=== PATIENT | female | born 1970 | race Caucasian/White ===

== ENCOUNTER 2018-08-20 16:55 | Emergency (ER) | payer MEDICAID ==
[~2018-08-20] VITALS: Ht 165.1 cm; Wt 70.0 kg
[~2018-08-20 16:55] MED LIST: PERM60CR19 TP
[2018-08-20 17:27] VITALS: BP 114/70
--- NOTE | 2018-08-20 18:08 | NUR ---
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
--- NOTE | 2018-08-20 18:38 | NUR ---
RINGS WERE REMOVED WITH RING CUTTER, PT NABILA WELL
== END 2018-08-20 18:39 | disposition home or self-care (01) ==
LOC: ER 16:55
DX: M79.644 Pain in right finger(s) (principal); M79.89 Other specified soft tissue disorders; F12.10 Cannabis abuse, uncomplicated
CPT/HCPCS: 73130; 99283

== ENCOUNTER 2025-06-21 21:06 | Inpatient (IN) | payer MEDICAID ==
[~2025-06-21] VITALS: Ht 165.1 cm; Wt 72.6 kg
[~2025-06-21 21:06] MED LIST changes: -PERM60CR19 TP; +PERM60CR27 TP
--- NOTE | 2025-06-21 21:26 | ELECTROCARDIOGRAPH REPORT ---
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 Thomas Iglesias Measurements Intervals [place] Rate: 74 P: 72 [place]: 148 QRS: 45 QRSD: 93 T: 86 QT: 407 QTc: 452 Interpretive Statements Sinus rhythm Anteroseptal infarct, age indeterminate Electronically Signed On 06-22-2025 18:50:[address] Thomas Iglesias Please click the below link to view image of tracing.
--- NOTE | 2025-06-21 21:58 | Physician Documentation ---
History of Present Illness ~ Chief Complaint: Shortness of Breath Stated Complaint: TRANSFER Time Seen by MD: 21:57 Primary Medical Doctor: NONE HPI Patient presents to the emergency room for evaluation of shortness of breaths sent from [facility]. Workup at sending facility that has consistent with COPD exacerbation with hypoxia. CT scan performed at sending facility showed that there was a pulmonic mass and they he had not feel comfortable admitting patient without MRI capabilities therefore transferred to our facility. Patient continues to endorse shortness of breath. Medication Reconciliation Allergies: Coded Allergies: No Known Allergies (Unverified , 06/21/25) Miscellaneous Medications Home Med List (No Home Medications), (Reported) Discontinued Medications Permethrin 5% Cream* (Elimite 5% Cream*), 1 APPLIC TP ONCE Discontinued Reason: patient no longer taking Past Medical History Past Medical History: Bronchitis Past Surgical History: no surgical history Alcohol Use: Occasionally Drug Use: marijuana Lives with: Family Lives In: Home Review of Systems ROS All review of systems negative except as per HPI Physical Exam Vital Signs: Temperature: 99.1, Source: Oral, Heart Rate: 80, Respiratory Rate: 22, BP: 114/69, Pulse Oximetry: 93, Weight: 72.600 Oxygen Flow Rate: 4.0 Physical Exam General: Patient is awake, alert, oriented x4 in no acute distress Head: Normocephalic and atraumatic. Eyes: Conjunctival normal. EOMI. PERRL. ENT: Mucous membranes moist. Neck: Supple, trachea is midline. Chest: Coarse breath sounds and diffuse rhonchi bilaterally. There is no accessory muscle use or retractions. Cardiac: RRR without murmurs, gallops, or rubs. Abd: Soft, nondistended, nontender, with normoactive bowel sounds. No guarding, rebound, or rigidity. Progress Results/Orders Results/Orders Orders - LON VIZCAINO MD Page Hospitalist (06/21/25 22:14) Fill Out Med Reconciliation (06/21/25 22:14) Completed Orders - LON VIZCAINO MD Electrocardiogram (06/21/25 21:20) Medications Received in ER Medications (Trade) Dose Ordered Sig/Vicki Route PRN Reason Start Time Stop Time Status Last Admin Dose Admin Sodium Chloride 1,000 ml @ 75 mls/hr [id number] IV 06/21/25 23:25 06/21/25 23:25 75 MLS/HR Vital Signs 06/21/25 21:16 Temp 99.1 Pulse 80 Resp 22 B/P (MAP) 114/69 Pulse Ox 93 O2 Flow Rate 4.0 Laboratory Tests Test 06/21/25 21:17 Prothrombin Time 10.0 INR International Normalized Ratio 1.0 Activated Partial Thromboplast Time 26 Coagulation Comments Phosphorus Level 2.7 Magnesium Level 2.2 Pro-B-Type Natriuretic Peptide 88 EKG/XRAY/CT/US/VASC/MRI EKG : Additional Comment EKG interpreted by myself shows time of 09/05/2023, rate 74, sinus rhythm, normal axis, no ST changes Medical Decision Making Additional information obtaine: other Findings Patient presented to the emergency room that has a transfer from [facility] with COPD exacerbation and I hypoxia and found to have a lung mass. They do not have MRI capabilities to further characterize the lung mass therefore transferred to our facility. Heart Score: 0 Differential Dx:Considerations: Include: anxiety, asthma, bronchitis, cardiogenic shock, CHF, COPD, dysrhythmia, hypertension, accelerated, hypertension, essential, hypertension, malignant, hyperventilation, hyponatremia , myocardial infarction, panic attack, pneumonia, pneumonitis, pneumothorax, PSVT, pulmonary embolism, respiratory distress, respiratory failure, sinusitis, upper resp. infection, other Departure Admitted to Inpatient Unit: yes, to hospitalist Impression: Primary Impression: COPD exacerbation Additional Impressions: Hypoxia Lung mass Condition: Guarded Referrals: NO PRIMARY CARE PROVIDER (PCP) Critical Care Note Total Time (mins): 30 Critical Care Note The very real possibility of a deterioration of this patient's condition required the highest level of my preparedness for sudden, emergent intervention. I provided critical care services, which included medication orders, frequent reevaluations of the patient's condition and response to treatment, ordering and reviewing test results, and discussing the case with various consultants. Excludes time spent performing separately billable procedures. The critical care time associated with the care of the patient was 30 minutes not counting procedures Signature Scribe Signature: No scribe Attestation: The note accurately reflects work and decisions made by me.Lon Vizcaino MD 06/21/25 22:13 LON VIZCAINO MD Jun 21, 2025 21:58
[2025-06-21] MEDS ORDERED: mag hydrox/Alum hydrox/simeth 30ml oral suspension PO PRN (23:25)
[2025-06-21] MEDS ORDERED: magnesium sulf-water 2g/50mL 50 ML IV PRN (23:25)
[2025-06-21] MEDS ORDERED: magnesium hydroxide 30ml (MOM) UD suspension PO PRN (23:25)
[2025-06-21] MEDS: normal saline 1000ml 1,000 ML IV SCH (23:25)
[2025-06-21] MEDS ORDERED: potassium Cl 20 mEq SR tablet PO PRN ×2 (23:25)
[2025-06-21] MEDS ORDERED: magnesium sulf-water 4G/100mL 100 ML IV PRN (23:25)
[2025-06-21] MEDS ORDERED: ondansetron/PF 4mg/2ml inj IV PRN (23:25)
[2025-06-21] MEDS ORDERED: potassium Cl 40MEQ/1/2NS 520ml 520 ML IV PRN (23:25)
[2025-06-21] MEDS ORDERED: magnesium Cl slow-release 64mg tablet PO PRN (23:25)
[2025-06-21] MEDS ORDERED: albuterol 2.5 MG/3 ML nebule NEB PRN (23:25)
--- NOTE | 2025-06-21 23:41 | HISTORY AND PHYSICAL-Residence ---
History & Physical Providers to CC Resident Creating Document: JAREN NARVAEZ, RES CC: AMANDEEP GRAHAM MD ~ History of Present Illness Primary Medical Doctor: NONE Reason for Admit\Complaint: COPD exacerbation History of Present Illness 54-year-old female patient with past medical history of COPD, active tobacco use disorder, active methamphetamine use is a transfer from [facility] chief complaints of COPD exacerbation with hypoxia and incidental CT finding of pulmonic mass, for further workup of the mass and MRI for further evaluation Patient stated that she was completely normal a week ago, she started developing shortness of breath associated with cough with white sputum. Patient also stated that her shortness of breath severely aggravated and she could not walk even couple of steps, during this time she also noticed she had chest pain she described the pain as burning kind of pain and was throughout her chest she felt like her lungs were on fire, also stated that she felt extreme fatigue due to repeated coughing spells. Patient also stated that she had two episodes of fever during the last one week but did not record any temperature. Admission course at [facility] Patient was supplemented with oxygen, received one dose of 125 mg Solu-Medrol and was initiated on ceftriaxone+azithromycin Patient's CT chest with contrast findings showed fat density mass adjacent to cardiac apex, further evaluation with MRI recommended Chest x-ray reported slight left basilar pneumonia Tested negative for COVID and flu Lives in a trailer with her friend, she does not have a primary care doctor. Allergies: Coded Allergies: No Known Allergies (Unverified , 06/21/25) Home Medications Home Medications Active Elimite 5% Cream* (Permethrin) 60 Gm Cream.gm. 1 Applic TP ONCE Past Medical History Past Medical History Active tobacco use Polysubstance use COPD Past Surgical History Surgical History Comment Patient recently had sutures of her left index finger post a small accident when she was trying to open a super glue Past Social History Social History Comment Patient continues to smoke half pack of cigarettes, she has smoked for the last 40 years Patient stated that she smokes and snorts methamphetamine Patient says she occasionally drinks alcohol Smoking: Cigarettes Alcohol Use: Occasionally Drug Use: Marijuana Lives with: Family Lives In: Home ROS ROS Constitutional: No fever, dizziness,no weakness, no decrease in appetite HEENT: Normal vision. No sore throat, epistaxis, tinnitus Cardiovascular: No chest pain/discomfort, palpitations, syncope. no pedal edema Respiratory: Shortness of breath and cough noted,no hemoptysis Gastrointestinal: No abdominal pain, nausea, vomiting. No diarrhea, melena. Genitourinary: No frquency, urgency, incontinence, nocturia. No dysuria, hematuria Musculoskeletal: Normal, no pains Endocrine: No fatigue, polydipsia, polyuria. No heat or cold intolerance Neurologic: No headache, vertigo. No weakness, numbness or tingling of extremities Psychiatric: No hallucinations/delusions, no anhedonia, no suicidal ideation Hematologic: No bruises Exam Vitals: Vital Signs Date Time Temp Pulse Resp B/P (MAP) Pulse Ox O2 Delivery O2 Flow Rate FiO2 06/21/25 21:16 99.1 80 22 114/69 93 4.0 General: General: Awake, oriented to person, place and time HEENT: Conjunctive are pink, sclerae clear, no icterus, pupil is equal in both sides, reactive to light, no ear discharge, no pharyngeal erythema or an edema. Pursed lips Neck: Supple, no JVD, no lymphadenopathy and thyromegaly. Chest: Decreased breath sounds, expiratory wheezes heard bilaterally Cardiovascular: S1-S2 regular sinus rhythm and, regular rate, no gallops, no rubs, no murmurs Abdomen: No visible peristalsis, Bowel sounds present on auscultation, soft, no tenderness, no guarding, no rigidity Extremities: No obvious deformities, no pitting edema bilaterally, capillary refill intact, peripheral pulsations are intact on both sides. Left index finger sutures noted Neurologic: Mental status: alert and conscious, oriented to place, person and time, preserved memory, normal speech. Cranial nerves I-XII: Normal. Motor system: Preserved power, coordination, no evidenced involuntary movements, strength 5/5 in four extremities. Sensory system: Preserved temperature, pain and vibration sensation. 2+ deep tendon reflexes in biceps, triceps, quadriceps. Negative Babinski. Cerebellar: No nystagmus, dysdiadochokinesia, normal [id number] testing. Musculoskeletal: No joint swelling, deformities, inflammations, and no scoliosis and back tenderness Skin: Warm and dry. Dry oral mucosa. Diagnostic Data Last Recorded Lab Results: 06/22/25 0306 06/22/25 0306 Counseling Services Smoking & Tobacco Cessation: 3-10 Minutes (Discussing smoking cessation with the patient including the risk continued smoking with the patient including: lung cancer, stroke, heart attack, poor wound healing, increase in facial drinking, risk of MRSA skin infections.) Advance Care Planning Advanced Care plannin - 30 Minutes (Spent 17 minutes discussing advanced care planning/ resuscitative measures patient decided she wanted to be a full code) Additional Plan Assessment: A 54-year-old female patient with past medical history of COPD, active tobacco use disorder, active methamphetamine use is a transfer from [facility] chief complaints of COPD exacerbation with hypoxia and incidental CT finding of pulmonic mass, for further workup of the mass and MRI for further evaluation Acute hypoxemic respiratory failure Secondary to acute exacerbation of COPD On examination, patient has expiratory wheezing and decreased breath sounds heard; patient also noted to have cough with sputum Patient is currently requiring 4 L of oxygen and saturating well [facility] course: Received one dose of 125 mg Solu-Medrol and was initiated on ceftriaxone+azithromycin Patient's CT chest with contrast findings showed fat density mass adjacent to cardiac apex, further evaluation with MRI recommended Chest x-ray reported slight left basilar pneumonia Tested negative for COVID and flu; patient's other labs were pretty benign in [facility] Plan Initiated the patient on fluids 75 mL/hour, patient appears dehydrated Initiated the patient on IV Solu-Medrol 40 mg once daily Initiated the patient on ceftriaxone IV 1 g +azithromycin 500 mg once daily Started the patient on guaifenesin syrup and DuoNebs q.4h scheduled, albuterol q.2h p.r.n. Follow up with sputum culture, echocardiogram, lactic acid,CRP and ESR Possible malignancy Patient's CT chest with contrast findings showed fat density mass adjacent to cardiac apex, further evaluation with MRI recommended Consult pharmacy informatics manager in a.m. Right lower extremity sciatica Patient stated that she does have a couple of episodes of right lower extremity burning pain She sees a chiropractor for that She is currently not in any acute pain Active tobacco use Active methamphetamine use U tox pending Initiated 21 mg nicotine patch financial services specialist and substance use navigator consult in place Code Status: Full code DVT Prophylaxis: Heparin Lines/Tubes: PIV Nutrition: Regular diet PT:yes Prognosis: Guarded Disposition: Consult pharmacy informatics manager in a.m., follow up with echocardiogram Jaren Narvaez MD Internal medicine resident,[id number] Date of Service: Jun 22, 2025 Billing Provider: AMANDEEP GRAHAM MD Addendum Attestation I agree with the residents assessment and plan as below: 54 year old female with COPD admitted with a cardiac mass Plan: official echo nebs Q6hr steroids x 5 days o2 via nasal cannula CCT 52 min using HIPPA compliant A/V technology JAREN NARVAEZ, RES Jun 21, 2025 23:41 AMANDEEP GRAHAM MD Jun 22, 2025 04:50
[2025-06-21 23:53] LABS: APTT 26 SECONDS (22-32); INR 1.0 INR
[2025-06-22] VITALS (17 sets, daily range): BP systolic 93–113; BP diastolic 50–65; PULSE 63–87; RESP 14–22; TEMP 97.3–98.6; O2SAT 91–99
[2025-06-22 00:22] LABS: PHOSPHORUS 2.7 MG/DL (2.3-4.5); PRO BRAIN NATRIURETIC PEPTIDE 88.0 PG/ML (0-125)
[2025-06-22] MEDS: ipratropium/albuterol 3ml nebule NEB SCH (01:06)
[2025-06-22] MEDS ORDERED: NO HOME MEDS (01:23)
[2025-06-22] MEDS: guaiFENesin 200 MG/10 ML oral syrup UD cup PO SCH (01:30)
[2025-06-22 03:18] LABS: MEAN PLATELET VOLUME 8.1 FL (7.4-10.4); RED CELL DISTRIBUTION WIDTH 14.1 % (11.5-14.5)
[2025-06-22 03:42] LABS: CREATININE 0.77 MG/DL (0.40-0.90); TOTAL CARBON DIOXIDE 27.5 MMOL/L (24-32); eCRCL 74 ML/MIN; eGFR 78 ML/MIN
[2025-06-22 06:21] LABS: LEUKOCYTE ESTERASE ,URINE NEGATIVE (Neg); NITRITES, URINE NEGATIVE (Neg); OCCULT BLOOD,URINE NEGATIVE (Neg)
[2025-06-22 06:22] LABS: UA COLLECTION TYPE VOIDED
[2025-06-22 06:25] LABS: URINE AMPHETAMINE SCREEN POSITIVE (Neg); URINE BARBITUATE SCREEN NEGATIVE (Neg); URINE BENZODIAZEPINES SCREEN NEGATIVE (Neg); URINE CANNABINOID SCREEN NEGATIVE (Neg); URINE COCAINE SCREEN NEGATIVE (Neg); URINE METHADONE SCREEN NEGATIVE (Neg); URINE OPIATE SCREEN NEGATIVE (Neg); URINE PHENCYCLIDINE SCREEN NEGATIVE (Neg)
[2025-06-22] MEDS: K and/or MAG REPLACEMENT MC SCH (08:00)
[2025-06-22] MEDS: nicotine 21mg patch - 24 hr TD SCH (08:00)
[2025-06-22] MEDS: CefTRIAXone/D5W-Rocephin 1gm 50 ML IV SCH (08:00)
--- NOTE | 2025-06-22 08:47 | PROGRESS NOTE ---
Daily Progress Note Providers to CC ~ Antibiotic Timeout Antibiotic Ordered?: Yes Subjective Continues to have shortness of breaths. Patient is agreeable to get a biopsy if necessary. Objective Vital Signs Date Time Temp Pulse Resp B/P (MAP) Pulse Ox O2 Delivery O2 Flow Rate FiO2 06/22/25 08:13 65 20 Nasal Cannula 4.0 06/22/25 08:07 94 36 06/22/25 07:00 97.3 110/65 (80) Result Diagram: 06/22/25 0306 06/22/25 0306 Gen. awake alert oriented asymptomatic HEENT: Normocephalic, atraumatic, extraocular movements are intact, sclera anicteric, conjunctiva pinkish, moist oral mucosa, no rash or ulcers. NECK: Supple, no JVD, trachea midline. CHEST: Bilateral diffuse inspiratory and expiratory rhonchi HEART: Regular rate rhythm, no murmur gallop or rub. ABDOMEN: Soft, nontender, no organomegaly. EXTREMITIES: No cyanosis clubbing or edema. NEURO EXAM: Grossly nonfocal. MUSCULOSKELETAL : No joint swelling or deformities. SKIN: No rash or ulcers noted. Coagulation Studies Laboratory Tests Test 06/21/25 21:17 Prothrombin Time 10.0 SECONDS (9.0-12.0) INR International Normalized Ratio 1.0 INR Activated Partial Thromboplast Time 26 SECONDS (22-32) Coagulation Comments Other Results Medications reviewed Problem\Assessment\Plan 54 years old female with a history of COPD, tobacco use, methamphetamine use, transferred from [facility] for evaluation of COPD exacerbation, hypoxia and a lung mass. #COPD with exacerbation: Continue inhaled bronchodilators and IV steroids #pulmonary mass: Request Pulmonary consultation and IR consultation for evaluating the patient for a possible biopsy # ongoing tobacco use: Nicotine patch if necessary #history of meth use: Monitor for withdrawals etc.. Gut Snatcher consultation once patient is more stable #code status: Full code. Date of Service: Jun 22, 2025 Billing Provider: VIKAS LESTER MD Common Visit Codes: 08718-[id number] INP/OBS CARE(HIGH) VIKAS LESTER MD Jun 22, 2025 08:47
[2025-06-22] MEDS: docusate sod 100mg capsule PO SCH (09:38)
[2025-06-22] MEDS: heparin, porcine 5000 units/ml vial SQ SCH (09:40)
[2025-06-22] MEDS: methylPREDNISolone sod succ/PF 40mg inj. IV SCH (09:40)
[2025-06-22] MEDS ORDERED: PERFLUTREN PROTEIN-A MICROSPHR (Optison) 0.22 MG/ML 3ML VIAL IV ONE (10:00)
--- NOTE | 2025-06-22 17:37 | CARDIOLOGY REPORT ---
APPROVED REPORT EXAM: Comprehensive 2D, Doppler, and color-flow Echocardiogram. Patient Location: 4024B Blood Pressure: 110/65 mmHg Heart Rate: 61 bpm Rhythm: Sinus Indications Shortness of Breath Chest Pain COPD NO MATERIAL DAMAGE APPRAISER NO Previous ECHO 2D Dimensions LA Diam 2.2 cm IVSd 1.1 (0.7-1.1cm) LVDd 4.2 cm PWd 0.8 (0.7-1.1cm) IVSs 1.4 (0.8-1.2cm) LVDs 2.1 (2.5-4.0cm) PWs 1.5 (0.8-1.2cm) LVOT Diameter 1.98 (1.8-2.4cm) LVEF(%) 81.0 (>50%) IVC 13.29 mm FS (%) 49.4 % SV 64.9 ml CO 4.0 L/min M-Mode Dimensions Left Atrium(MM) 3.50 (2.5-4.0cm) Aortic Root 2.79 (2.2-3.7cm) Aortic Cusp Exc 1.45 (1.5-2.0cm) MV EPSS 0.8 (<0.5cm) Aortic Valve AoV Peak James. 137.8 cm/s AoV VTI 29.0 cm AO Peak GR. 7.6 mmHg AO Mean GR. 4 mmHg LVOT VTI 26.42 cm LVOT Peak James. 105.8 cm/s VAL(VTI)/BSA 2.81 cm2/m2 VAL (VTI) 2.81 cm2 AV DI 0.91 % Mitral Valve MV E Velocity 75.2 cm/s MV Peak Gr. 5 mmHg MV DECEL TIME 244 ms MV A Velocity 71.9 cm/s MV PHT 40 ms E/A Ratio 1.0 MVA (PHT) 5.50 cm2 MV VMax 107.6 cm/s TDI Lateral E' P. V 9.88 cm/s E/Lateral E' 7.6 Tricuspid Valve TR P. Velocity 121 cm/s RAP ESTIMATE 10 mmHg TR Peak Gr. 6 mmHg RVSP 16 mmHg LEFT VENTRICLE Normal LV size and wall thickness. Overall systolic function is hyperdynamic. LVEF is 75-80%. RIGHT VENTRICLE Right ventricle is mildly dilated with adequate function. ATRIA The left atrium size is normal. AORTIC VALVE Trileaflet AV appears mildly sclerotic without stenosis. No insufficiency. MITRAL VALVE Mitral valve leaflets are mildly thickened with mild annular calcification. No stenosis. Trace regurgitation. TRICUSPID VALVE Tricuspid valve is grossly normal in structure with trace regurgitation. PULMONIC VALVE Pulmonic valve is grossly normal in structure with physiologic insufficiency. GREAT VESSELS The aortic root is normal in size. The ascending aorta is normal in size. The IVC is normal in size and collapses >50% with inspiration. PERICARDIUM Normal pericardium. No effusion. Other Information Study Quality: Adequate Conclusion Normal LV size and wall thickness. Overall systolic function is hyperdynamic. LVEF is 75-80%. Right ventricle is mildly dilated with adequate function. The left atrium size is normal. Trileaflet AV appears mildly sclerotic without stenosis. No insufficiency. Mitral valve leaflets are mildly thickened with mild annular calcification. No stenosis. Trace regurgitation. Tricuspid valve is grossly normal in structure with trace regurgitation. Normal pericardium. No effusion.
[2025-06-23] VITALS (18 sets, daily range): BP systolic 95–113; BP diastolic 34–60; PULSE 66–85; RESP 14–22; TEMP 98–98.9; O2SAT 89–99
[2025-06-23 06:20] LABS: MEAN PLATELET VOLUME 8.2 FL (7.4-10.4); RED CELL DISTRIBUTION WIDTH 13.9 % (11.5-14.5)
[2025-06-23 06:47] LABS: CREATININE 0.67 MG/DL (0.40-0.90); TOTAL CARBON DIOXIDE 27.6 MMOL/L (24-32); eCRCL 85 ML/MIN; eGFR > 90 ML/MIN
--- NOTE | 2025-06-23 14:33 | PROGRESS NOTE ---
Daily Progress Note Providers to CC ~ Antibiotic Timeout Antibiotic Ordered?: Yes Subjective No new complaints. Patient is seen resting comfortably Objective Vital Signs Date Time Temp Pulse Resp B/P (MAP) Pulse Ox O2 Delivery O2 Flow Rate FiO2 06/23/25 10:40 14 06/23/25 10:00 98.1 78 102/60 (74) 95 Nasal Cannula 4.0 06/23/25 08:00 32 Result Diagram: 06/23/2552306/23/25523 Gen. awake alert oriented asymptomatic HEENT: Normocephalic, atraumatic, extraocular movements are intact, sclera anicteric, conjunctiva pinkish, moist oral mucosa, no rash or ulcers. NECK: Supple, no JVD, trachea midline. CHEST: Bilateral diffuse inspiratory and expiratory rhonchi HEART: Regular rate rhythm, no murmur gallop or rub. ABDOMEN: Soft, nontender, no organomegaly. EXTREMITIES: No cyanosis clubbing or edema. NEURO EXAM: Grossly nonfocal. MUSCULOSKELETAL : No joint swelling or deformities. SKIN: No rash or ulcers noted. Coagulation Studies Laboratory Tests Test 06/21/25 21:17 Prothrombin Time 10.0 SECONDS (9.0-12.0) INR International Normalized Ratio 1.0 INR Activated Partial Thromboplast Time 26 SECONDS (22-32) Coagulation Comments Other Results Medications reviewed Problem\Assessment\Plan 54 years old female with a history of COPD, tobacco use, methamphetamine use, transferred from [facility] for evaluation of COPD exacerbation, hypoxia and a lung mass. #COPD with exacerbation: Continue inhaled bronchodilators and IV steroids #pulmonary mass: Requested Pulmonary consultation ( Dr. Rizvi ) and IR consultation for evaluating the patient for a possible biopsy # ongoing tobacco use: Nicotine patch if necessary #history of meth use: Monitor for withdrawals etc.. Tools Developer consultation once patient is more stable #code status: Full code. VIKAS LESTER MD Jun 23, 2025 14:33
[2025-06-24] VITALS (7 sets, daily range): BP systolic 104–111; BP diastolic 57–68; PULSE 60–78; RESP 1–20; TEMP 97.6–98.5; O2SAT 93–95
[2025-06-24 06:49] LABS: MEAN PLATELET VOLUME 8.4 FL (7.4-10.4); RED CELL DISTRIBUTION WIDTH 14.0 % (11.5-14.5)
[2025-06-24 07:08] LABS: CREATININE 0.79 MG/DL (0.40-0.90); TOTAL CARBON DIOXIDE 27.6 MMOL/L (24-32); eCRCL 72 ML/MIN; eGFR 76 ML/MIN
[2025-06-24] MEDS ORDERED: ondansetron 4mg rapidly disintigrating tab PO PRN (09:45)
[2025-06-24] MEDS ORDERED: HYDROcodone/acetaminophen 5mg/325mg tablet PO PRN (09:45)
[2025-06-24] MEDS ORDERED: HYDROcodone/acetaminophen 10/325mg tab PO PRN (09:45)
[2025-06-24] MEDS ORDERED: magnesium hydroxide 30ml (MOM) UD suspension PO PRN (09:45)
[2025-06-24] MEDS ORDERED: mag hydrox/Alum hydrox/simeth 30ml oral suspension PO PRN (09:45)
[2025-06-24] MEDS ORDERED: ondansetron/PF 4mg/2ml inj IV PRN (09:45)
[2025-06-24] MEDS ORDERED: acetaminophen 650mg rectal suppository RC PRN (09:45)
--- NOTE | 2025-06-24 09:45 | PROGRESS NOTE ---
Daily Progress Note Providers to CC Please disregard this entry, duplicate ~ Central Line/PICC still needed: No Escamilla-Non Protocol Escamilla Indications Met/Not Met: F/C Indications Not Met Antibiotic Timeout Antibiotic Ordered?: No MRSA Education MRSA Education Provided to pt: No Objective Vital Signs Date Time Temp Pulse Resp B/P (MAP) Pulse Ox O2 Delivery O2 Flow Rate FiO2 06/24/25 07:48 62 18 Nasal Cannula 3.0 06/24/25 07:41 93 32 06/24/25 05:00 98.5 104/57 (73) Result Diagram: 06/24/2555 06/24/2555 Coagulation Studies Laboratory Tests Test 06/21/25 21:17 Prothrombin Time 10.0 SECONDS (9.0-12.0) INR International Normalized Ratio 1.0 INR Activated Partial Thromboplast Time 26 SECONDS (22-32) Coagulation Comments Problem\Assessment\Plan 54 years old female with a history of COPD, tobacco use, methamphetamine use, transferred from [facility] for evaluation of COPD exacerbation, hypoxia and a lung mass. #COPD with exacerbation: Continue inhaled bronchodilators and IV steroids #pulmonary mass: Requested Pulmonary consultation ( Dr. Rizvi ) and IR consultation for evaluating the patient for a possible biopsy # ongoing tobacco use: Nicotine patch if necessary #history of meth use: Monitor for withdrawals etc.. Betting Agency Manager consultation once patient is more stable #code status: Full code. Date of Service: Jun 24, 2025 Billing Provider: RODERICK VÁZQUEZ MD Common Visit Codes: NOT BILLABLE RODERICK VÁZQUEZ MD Jun 24, 2025 09:45
[2025-06-24 10:24] LABS: PHOSPHORUS 3.5 MG/DL (2.3-4.5)
--- NOTE | 2025-06-24 10:59 | ELECTROCARDIOGRAPH REPORT ---
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 RENETTA Pulido Measurements Intervals [place] Rate: 67 P: 37 [place]: 123 QRS: -45 QRSD: 102 T: 84 QT: 418 QTc: 442 Interpretive Statements Sinus rhythm LAD, consider left anterior fascicular block Electronically Signed On 06-24-2025 12:12:[address] RENETTA Pulido Please click the below link to view image of tracing.
--- NOTE | 2025-06-24 11:18 | RADIOLOGY REPORT ---
Procedure: CT CT CHEST ABDOMEN PELVIS 06/24/2025 10:43 AM Indication: Chest pain, lung mass, questioned, abdominal pain, Comparison Study: None Technique: Axial images were obtained and reformatted in coronal and sagittal planes. All CT scans at this medical facility are performed using dose modulation techniques as appropriate to a performed exam including the following: Automated exposure control was utilized; adjustment of the MA and/or KV according to patient size; and use of iterative reconstruction technique. CT Dose: CTDI volume is 14.6 mGy. Dose-length product is 756 mGy*cm FINDINGS: Lower neck: Unremarkable. Cardiomediastinal: Heart size is enlarged with a left ventricular configuration. No pericardial effusion. Small mediastinal lymph nodes. Lungs: No focal pulmonary opacity. No pleural effusion. No pneumothorax. Areas of traction bronchiectasis in the lung bases. Adrenal Glands: Unremarkable. tract: The kidneys are normal in size bilaterally without hydronephrosis or nephrolithiasis. The urinary bladder is unremarkable. GI tract: Multiple small radiopacities are seen in the stomach and small bowel possibly pills. No evidence of small bowel obstruction. The large bowel is unremarkable. There is fecal distention of the colon No gallstones. Liver and spleen are normal in size. Calcified granuloma in the spleen. Lymphatics: No mesenteric, retroperitoneal or periportal lymphadenopathy. Vasculature: The abdominal aorta is normal in in caliber. Pelvic Organs: Unremarkable. Bones/soft tissues: No acute abnormality. Other: None. IMPRESSION: 1. No acute abnormality in the chest, abdomen or pelvis. 2. Areas of traction bronchiectasis in the lung bases. Signs of chronic hypertensive atherosclerotic cardiovascular disease. 3. Incidental note made of splenic granulomata. 4. Incidental note made of multiple small radiopacities in the stomach and small bowel, possibly medication or pills 5. Evidence of colonic fecal loading particularly in the right colon and rectum.
--- NOTE | 2025-06-24 19:06 | DISCHARGE SUMMARY ---
Discharge Summary Providers to CC Patient left AMA ~ Discharge Summary Assessment COPD in exacerbation Acute respiratory failure, hypoxic Chronic tobacco abuse including currently Chronic amphetamine abuse including Currently acute amphetamine intoxication Lung mass Right lower extremity sciatica Admission Diagnosis: COPD exaberation Admission Diagnosis Comment: COPD in exacerbation Acute respiratory failure, hypoxic Chronic tobacco abuse including currently Chronic amphetamine abuse including Currently acute amphetamine intoxication Lung mass Right lower extremity sciatica Hospital Course DATE OF ADMISSION: June 21, 2025 DATE OF DISCHARGE: June 24, 2025 Discharge Diagnosis\Comment: COPD in exacerbation Acute respiratory failure, hypoxic Chronic tobacco abuse including currently Chronic amphetamine abuse including Currently acute amphetamine intoxication Lung mass Right lower extremity sciatica Operations\Procedures: Non Consultants: Non Complications: Non Condition on DC: Stable Discharge Summary: 54-year-old female patient with past medical history of COPD, active tobacco use disorder, active methamphetamine use is a transfer from [facility] chief complaints of COPD exacerbation with hypoxia and incidental CT finding of pulmonic mass, for further workup of the mass and MRI for further evaluationPatient stated that she was completely normal a week ago, she started developing shortness of breath associated with cough with white sputum. Patient also stated that her shortness of breath severely aggravated and she could not walk even couple of steps, during this time she also noticed she had chest pain she described the pain as burning kind of pain and was throughout her chest she felt like her lungs were on fire, also stated that she felt extreme fatigue due to repeated coughing spells. Patient also stated that she had two episodes of fever during the last one week but did not record any temperature. Admission course at [facility] Patient was supplemented with oxygen, received one dose of 125 mg Solu-Medrol and was initiated on ceftriaxone+azithromycin Patient's CT chest with contrast findings showed fat density mass adjacent to cardiac apex, further evaluation with MRI recommended Chest x-ray reported slight left basilar pneumonia Tested negative for COVID and flu Lives in a trailer with her friend, she does not have a primary care doctor. Admission patient was extensively evaluated treated, today she is feeling better, and she elected to leave AMA. Unfortunately I have not had a chance to examine the patient, we advised the patient to continue inpatient treatment since we still did not finish evaluation and treatment, risk of severe complications and explained, patient understood elected to leave AMA. *Problems/Diagnosis: (1) Lung mass Status: Acute (2) Hypoxia Status: Acute (3) COPD exacerbation Status: Acute Total Time Spent on D/C: > 30 Minutes Date of Service: Jun 24, 2025 Billing Provider: RODERICK VÁZQUEZ MD Common Visit Codes: 46087-HNV/OBS DISCH DAY >30min RODERICK VÁZQUEZ MD Jun 24, 2025 19:06
[2025-06-24] MEDS ORDERED: docusate sod 100mg capsule PO SCH (20:00)
== END 2025-06-24 11:10 | disposition left against medical advice (07) | DRG 133 ==
LOC: ER 21:07 → ED HOLD 23:33 → ORTHO 4S 06-22 04:44
PROVIDERS: ADMIT Internal Medicine; ATTEND Internal Medicine
DX: J96.01 Acute respiratory failure with hypoxia (principal); J18.9 Pneumonia, unspecified organism; J44.0 Chronic obstructive pulmonary disease with (acute) lower respiratory infection; F15.129 Other stimulant abuse with intoxication, unspecified; J44.1 Chronic obstructive pulmonary disease with (acute) exacerbation; Z20.822 Contact with and (suspected) exposure to COVID-19; Z53.21 Procedure and treatment not carried out due to patient leaving prior to being seen by health care provider; M54.31 Sciatica, right side; R91.8 Other nonspecific abnormal finding of lung field; Z79.899 Other long term (current) drug therapy; Z72.0 Tobacco use
CPT/HCPCS: 36415; 71250; 74176; 80053; 80305; 81003; 83605; 83735; 83880; 84100; 84145; 85025; 85610; 85651; 85730; 86140; 87070; 87081; 87811; 93005; 93306; 94640; 94760; 99291; G0378; J0696; J1644; J2270; J2919; J7030